=== PATIENT | male | born 1935 | race Caucasian/White ===

== ENCOUNTER 2017-03-26 13:49 | Emergency (ER) | payer MEDICARE, OTHER ==
[2017-03-26 14:00] VITALS: BP 134/66
== END 2017-03-26 14:29 | disposition left against medical advice (07) ==
LOC: ED 13:49
DX: Z53.21 Procedure and treatment not carried out due to patient leaving prior to being seen by health care provider (principal)

== ENCOUNTER 2017-11-20 14:02 | Outpatient (CLI) | payer MEDICARE, OTHER ==
--- NOTE | 2017-11-20 15:33 | XRAY Report ---
LEFT THUMB: 11/20/2017 COMPARISON: None. INDICATION: Thumb pain. TECHNIQUE: Three views. FINDINGS: There are moderate degenerative changes of the first carpometacarpal joint. Alignment appears normal. No evidence of acute fracture. IMPRESSION: MODERATE BASAL JOINT OSTEOARTHRITIS. NO ACUTE FINDINGS. TD: 11/20/2017 15:33 [facility]
== END 2017-11-20 14:03 | disposition home or self-care (01) ==
LOC: DI 14:02
PROVIDERS: ATTEND Internal Medicine
DX: M18.12 Unilateral primary osteoarthritis of first carpometacarpal joint, left hand (principal); M79.646 Pain in unspecified finger(s)
CPT/HCPCS: 36415; 73140; 84550

== ENCOUNTER 2017-11-20 14:34 | Outpatient (CLI) | payer MEDICARE, OTHER | END 2017-11-20 14:35 | disposition home or self-care (01) | LOC: LAB 14:34 | PROVIDERS: ATTEND Internal Medicine | DX: M79.646 Pain in unspecified finger(s) (principal) | CPT/HCPCS: 36415; 84550 ==

== ENCOUNTER 2017-12-31 15:26 | Outpatient (CLI) | payer MEDICARE, OTHER ==
--- NOTE | 2017-12-31 16:00 | XRAY Report ---
EXAM: CHEST RADIOGRAPHY EXAM DATE: 12/31/2017 03:50 PM. CLINICAL HISTORY: COUGH. COMPARISON: None. TECHNIQUE: 2 views. FINDINGS: Lungs/Pleura: No focal opacities evident. No pleural effusion. No pneumothorax. Normal volumes. Mediastinum: Heart and mediastinal contours are unremarkable. Other: None. IMPRESSION: Negative chest. [facility] Referring Provider Line: [phone] SITE ID: [id number]
--- NOTE | 2017-12-31 16:00 | XRAY Preliminary Report ---
Exam: XR CHEST 2 VIEW X-RAY IMPRESSION: Negative chest. [facility] SITE ID: [id number]
[2017-12-31 16:06] LABS: HEMOGLOBIN A1C 0.61 g/dL; HEMOGLOBIN A1C % 6.1 % (4.6-6.2)
== END 2017-12-31 15:27 | disposition home or self-care (01) ==
LOC: LAB 15:26
PROVIDERS: ATTEND Internal Medicine
DX: R05 Cough (principal); E11.9 Type 2 diabetes mellitus without complications
CPT/HCPCS: 36415; 71046; 83036